=== PATIENT | male | born 1950 | race Two or more races ===

== ENCOUNTER → 2022-10-27 | Outpatient (CLI) | payer OTHER, MEDICAID ==
[~2022-10-27] MED LIST: PLAVIX
[2022-10-27 14:53] LABS: Urine Bacteria FEW /hpf (None Seen); Urine Blood 3+ /uL (Negative); Urine Mucus FEW (None Seen); Urine Specific Gravity 1.017 (1.001-1.035); Urine WBC 116 /hpf (0 - 3)
== END | disposition home or self-care (01) ==
LOC: LAB 12:17
PROVIDERS: ATTEND Urology
DX: R97.20 Elevated prostate specific antigen [PSA] (principal); N39.0 Urinary tract infection, site not specified
CPT/HCPCS: 81001; 84153; 84154; 87086

== ENCOUNTER → 2022-11-21 | Outpatient (CLI) | payer OTHER, MEDICAID ==
[2022-11-21 16:00] LABS: Urine Bacteria MOD /hpf (None Seen); Urine Blood 3+ /uL (Negative); Urine Hyaline Cast FEW /lpf (0 - 2); Urine Mucus FEW (None Seen); Urine Specific Gravity 1.019 (1.001-1.035); Urine WBC 294 /hpf (0 - 3)
== END | disposition home or self-care (01) ==
LOC: LAB 15:14
PROVIDERS: ATTEND Urology
DX: N39.0 Urinary tract infection, site not specified (principal)
CPT/HCPCS: 81001; 87086

== ENCOUNTER → 2022-12-12 | Outpatient (CLI) | payer OTHER, MEDICAID ==
[2022-12-12 15:18] LABS: Urine Bacteria FEW /hpf (None Seen); Urine Blood 3+ /uL (Negative); Urine Specific Gravity 1.016 (1.001-1.035); Urine WBC 54 /hpf (0 - 3)
== END | disposition home or self-care (01) ==
LOC: LAB 14:49
PROVIDERS: ATTEND Urology
DX: N39.0 Urinary tract infection, site not specified (principal)
CPT/HCPCS: 81001; 87086

== ENCOUNTER → 2023-01-03 | Outpatient (CLI) | payer MEDICAID ==
[2023-01-03 09:33] LABS: Urine Bacteria FEW /hpf (None Seen); Urine Blood 2+ /uL (Negative); Urine Mucus FEW (None Seen); Urine Specific Gravity 1.019 (1.001-1.035); Urine WBC 6 /hpf (0 - 3)
== END | disposition home or self-care (01) ==
LOC: LAB 09:04
PROVIDERS: ATTEND Urology
DX: R39.9 Unspecified symptoms and signs involving the genitourinary system (principal)
CPT/HCPCS: 81001; 87086

== ENCOUNTER → 2023-01-23 | Outpatient (CLI) | payer OTHER, MEDICAID ==
[2023-01-23 09:47] LABS: Urine Bacteria NONE SEEN /hpf (None Seen); Urine Blood 1+ /uL (Negative); Urine Mucus FEW (None Seen); Urine Specific Gravity 1.016 (1.001-1.035); Urine WBC 6 /hpf (0 - 3)
== END | disposition home or self-care (01) ==
LOC: LAB 09:09
PROVIDERS: ATTEND Urology
DX: N30.00 Acute cystitis without hematuria (principal)
CPT/HCPCS: 81001; 87086

== ENCOUNTER → 2023-02-03 | Outpatient (CLI) | payer OTHER, MEDICAID ==
[2023-02-03 16:27] LABS: Urine Bacteria FEW /hpf (None Seen); Urine Blood 3+ /uL (Negative); Urine Mucus FEW (None Seen); Urine Specific Gravity 1.017 (1.001-1.035); Urine WBC 92 /hpf (0 - 3)
== END | disposition home or self-care (01) ==
LOC: LAB 16:02
PROVIDERS: ATTEND Urology
DX: N39.0 Urinary tract infection, site not specified (principal)
CPT/HCPCS: 81001; 87086

== ENCOUNTER → 2023-05-25 | Day surgery (SDC) | payer OTHER, MEDICAID ==
[2023-05-23 12:52] LABS: Basophils # (auto) 0.1 10 ^3/uL (0-0.2); Basophils % (auto) 1.2 % (0.0-2.0); Eosinophils # (auto) 0.2 10 ^3/uL (0-0.8); Eosinophils % (auto) 3.6 % (0.0-7.0); Hematocrit 42.2 % (41.0-53.0); Hemoglobin 14.5 g/dL (13.5-17.5); Lymphocytes # (auto) 1.9 10 ^3/uL (0.4-5.4); Lymphocytes % (auto) 33.3 % (10.0-50.0); Mean Corpuscular Hemoglobin 33.2 pg (28.0-32.0); Mean Corpuscular Hgb Conc. 34.4 g/dL (32.0-36.0); Mean Corpuscular Volume 96.7 fL (80.0-100.0); Monocytes # (auto) 0.4 10 ^3/uL (0-1.3); Monocytes % (auto) 7.8 % (0.0-12.0); Neutrophils % (auto) 54.1 % (37.0-80.0); Nucleated Red Blood Cells % 0.2 %; Red Blood Cells 4.37 10^6/uL (4.5-5.90); Red Cell Distribution Width 14.1 % (11.8-14.3); White Blood Cell 5.6 10^3/uL (4.4-10.8)
[2023-05-23 12:56] LABS: INR 1.04 (0.9-1.15); Prothrombin Time 10.9 sec (9.3-11.8)
[2023-05-23 13:11] LABS: Alanine Aminotransferase 23 U/L (7-40); Albumin 4.2 g/dL (3.2-4.8); Alkaline Phosphatase 68 U/L (46-116); Anion Gap 5 (5-15); Aspartate Aminotransferase 26 U/L (13-40); Blood Urea Nitrogen 11 mg/dL (9-23); Calcium 9.5 mg/dL (8.5-10.1); Carbon Dioxide 28 mmol/L (20-30); Chloride 109 mmol/L (98-107); Glucose 96 mg/dL (74-106); Potassium 4.4 mmol/L (3.5-5.1); Sodium 142 mmol/L (136-145)
[2023-05-23 13:12] LABS: Bilirubin, Total 0.8 mg/dL (0.2-1.0); Total Protein 7.7 g/dL (5.7-8.2)
[2023-05-23 13:45] LABS: Urine Bacteria NONE SEEN /hpf (None Seen); Urine Blood 3+ /uL (Negative); Urine Clarity HAZY (Clear); Urine Color Yellow (Yellow); Urine Protein, UAD TRACE (Negative); Urine Specific Gravity 1.016 (1.001-1.035); Urine Urobilinogen Normal (Negative); Urine WBC 33 /hpf (0 - 3)
[~2023-05-25] VITALS: Ht 177.8 cm; Wt 127.0 kg
[~2023-05-25] MED LIST changes: +ATEN-60 PO; +CIPROFLOXACIN 400MG/200ML 200 ML IV ONE; +CLOP75TA28 PO; +FURO20TA3 PO; +HYDROmorphone HCL 2 MG/ML VL/or syr IV ONE; +HYDROmorphone HCL 2 MG/ML VL/or syr IV PRN; +MEPERIDINE HCL (25 MG/ML) 1ML VIAL IV PRN; +MEPERIDINE HCL (25 MG/ML) 1ML VIAL ONE; +ONDANSETRON HCL 4 MG/2 ML VIAL IV PRN; -PLAVIX; +PROPOFOL 10 MG/ML 20 ML IV ONE; +ePHEDrine SULFATE 50 MG/ML AMP ONE; +fentaNYL CITRATE 100 MCG/2 ML VL ONE
[2023-05-25 12:59] VITALS: PULSE 66; RESP 16; TEMP 97.3; O2SAT 98
[2023-05-25 14:30] VITALS: BP 105/53; PULSE 56; RESP 58; O2SAT 95
== END | disposition home or self-care (01) ==
LOC: SUR 08:26
PROVIDERS: ATTEND Urology
DX: N20.0 Calculus of kidney (principal); C67.4 Malignant neoplasm of posterior wall of bladder; I10 Essential (primary) hypertension; I25.10 Atherosclerotic heart disease of native coronary artery without angina pectoris; I25.2 Old myocardial infarction; G47.30 Sleep apnea, unspecified; E66.9 Obesity, unspecified; Z68.30 Body mass index [BMI] 30.0-30.9, adult
CPT/HCPCS: 36415; 50590; 52240; 80053; 81001; 85025; 85610; 85730; 87086; C1769; J0744; J1170; J2175; J2704; J3010; J7030

== ENCOUNTER 2023-07-06 07:09 | Day surgery (SDC) | payer OTHER, MEDICAID ==
[2023-07-03 12:16] LABS: Basophils # (auto) 0.1 10 ^3/uL (0-0.2); Basophils % (auto) 1.1 % (0.0-2.0); Eosinophils # (auto) 0.1 10 ^3/uL (0-0.8); Eosinophils % (auto) 2.2 % (0.0-7.0); Hemoglobin 14.3 g/dL (13.5-17.5); Lymphocytes # (auto) 1.7 10 ^3/uL (0.4-5.4); Lymphocytes % (auto) 28.2 % (10.0-50.0); Mean Corpuscular Hemoglobin 31.9 pg (28.0-32.0); Mean Corpuscular Hgb Conc. 33.3 g/dL (32.0-36.0); Mean Corpuscular Volume 95.9 fL (80.0-100.0); Monocytes # (auto) 0.4 10 ^3/uL (0-1.3); Monocytes % (auto) 7.5 % (0.0-12.0); Neutrophils # (auto) 3.6 10 ^3/uL (1.6-8.6); Nucleated Red Blood Cells % 0.1 %; Red Blood Cells 4.48 10^6/uL (4.5-5.90); White Blood Cell 5.9 10^3/uL (4.4-10.8)
[2023-07-03 12:41] LABS: Urine Bacteria FEW /hpf (None Seen); Urine Blood 1+ /uL (Negative); Urine Clarity Clear (Clear); Urine Color Yellow (Yellow); Urine Protein, UAD TRACE (Negative); Urine Specific Gravity 1.014 (1.001-1.035); Urine WBC 37 /hpf (0 - 3)
[2023-07-03 12:46] LABS: Alanine Aminotransferase 25 U/L (7-40); Alkaline Phosphatase 74 U/L (46-116); Anion Gap 5 (5-15); Aspartate Aminotransferase 24 U/L (13-40); BUN/Creatinine Ratio 13.8 (10.0-20.0); Blood Urea Nitrogen 12 mg/dL (9-23); Calcium 9.9 mg/dL (8.5-10.1); Carbon Dioxide 28 mmol/L (20-30); Chloride 109 mmol/L (98-107); Glucose 114 mg/dL (74-106); Partial Thromboplastin Time 28.7 SEC (24.5-34.5); Potassium 4.4 mmol/L (3.5-5.1); Prothrombin Time 10.5 sec (9.3-11.8); Sodium 142 mmol/L (136-145)
[2023-07-03 12:47] LABS: Albumin 4.2 g/dL (3.2-4.8); Bilirubin, Total 0.9 mg/dL (0.2-1.0); Total Protein 7.7 g/dL (5.7-8.2)
[~2023-07-06] VITALS: Ht 177.8 cm; Wt 127.9 kg
[~2023-07-06 07:09] MED LIST changes: +ALBUAER3 IN; -CIPROFLOXACIN 400MG/200ML 200 ML IV ONE; +CITA-73 PO; +DOCU-94 PO; -HYDROmorphone HCL 2 MG/ML VL/or syr IV ONE; -HYDROmorphone HCL 2 MG/ML VL/or syr IV PRN; +ISOS1TAB28 PO; -MEPERIDINE HCL (25 MG/ML) 1ML VIAL IV PRN; -MEPERIDINE HCL (25 MG/ML) 1ML VIAL ONE; +METO-289 PO; +MULT-908 OR; +OMEGCAP OR; -ONDANSETRON HCL 4 MG/2 ML VIAL IV PRN; +OXYB5TAB10 PO; +PERCOT PO; -PROPOFOL 10 MG/ML 20 ML IV ONE; +SIMV40TA18 PO; +TOLT1CAP29 PO; +UMEC1INH IN; +ZONI100C43 PO; -ePHEDrine SULFATE 50 MG/ML AMP ONE; -fentaNYL CITRATE 100 MCG/2 ML VL ONE
[2023-07-06] MEDS ORDERED: mitoMYcin 40 MG in STERILE WATER 60 ML IS ONE (07:15)
[2023-07-06] MEDS ORDERED: GLYCOPYRROLATE 0.2 MG/ML 1ML VIAL ONE (09:08)
[2023-07-06] MEDS ORDERED: SODIUM CHLORIDE LOCK 20 ML ONE (09:08)
[2023-07-06] MEDS ORDERED: ROCURONIUM 10MG/ML 10ML VIAL IV ONE (09:08)
[2023-07-06] MEDS ORDERED: DexAMETHasone SOD PHOS 10MG/1ML VIAL INJ ONE (09:08)
[2023-07-06] MEDS ORDERED: NEOSTIGMINE 1 MG/ML INJ (10mg/10ML VIAL) ONE (09:08)
[2023-07-06] MEDS ORDERED: MIDAZOLAM HCL 2MG/2ML 2ml VIAL (1mg/ml) ONE (09:08)
[2023-07-06] MEDS ORDERED: fentaNYL CITRATE 100 MCG/2 ML VL ONE (09:08)
[2023-07-06] MEDS ORDERED: MEPERIDINE HCL (25 MG/ML) 1ML VIAL ONE (09:08)
[2023-07-06] MEDS ORDERED: ETOMIDATE (2MG/ML) 20ML VIAL IV ONE (09:08)
[2023-07-06] MEDS ORDERED: HYDROmorphone HCL 2 MG/ML VL/or syr IV PRN ×2 (09:15)
[2023-07-06] MEDS ORDERED: METOCLOPRAMIDE HCL 5MG/ml INJ 2ml VIAL IV PRN (09:15)
[2023-07-06] MEDS ORDERED: MORPHINE SULFATE INJ 2 MG/ml SYRG IV PRN (09:15)
[2023-07-06 10:18] VITALS: PULSE 87; RESP 19; TEMP 98.2; O2SAT 96
[2023-07-06 11:20] VITALS: BP 123/61; PULSE 75; RESP 12; O2SAT 96
== END 2023-07-06 11:35 | disposition home or self-care (01) ==
LOC: SUR 07:09
PROVIDERS: ATTEND Urology
DX: N40.1 Benign prostatic hyperplasia with lower urinary tract symptoms (principal); D09.0 Carcinoma in situ of bladder; N30.00 Acute cystitis without hematuria; N30.20 Other chronic cystitis without hematuria; I10 Essential (primary) hypertension; I25.2 Old myocardial infarction; I25.119 Atherosclerotic heart disease of native coronary artery with unspecified angina pectoris; J44.9 Chronic obstructive pulmonary disease, unspecified; G47.33 Obstructive sleep apnea (adult) (pediatric); F17.210 Nicotine dependence, cigarettes, uncomplicated; E66.01 Morbid (severe) obesity due to excess calories; Z68.41 Body mass index [BMI] 40.0-44.9, adult; Z88.6 Allergy status to analgesic agent; Z88.8 Allergy status to other drugs, medicaments and biological substances; Z79.51 Long term (current) use of inhaled steroids; Z79.899 Other long term (current) drug therapy; Z98.890 Other specified postprocedural states
CPT/HCPCS: 36415; 51720; 52234; 80053; 81001; 85025; 85610; 85730; 87086; J1100; J2175; J2250; J3010; J9280

== ENCOUNTER → 2023-07-18 | Outpatient (CLI) | payer OTHER, MEDICAID ==
[2023-07-18 14:59] LABS: Urine Amorphous Crystal FEW /hpf (None Seen); Urine Bacteria FEW /hpf (None Seen); Urine Blood 3+ /uL (Negative); Urine Clarity HAZY (Clear); Urine Color Yellow (Yellow); Urine Protein, UAD 1+ (Negative); Urine Specific Gravity 1.018 (1.001-1.035); Urine WBC 47 /hpf (0 - 3); Urine pH 7.5 (5.0-8.0)
== END | disposition home or self-care (01) ==
LOC: LAB 14:02
PROVIDERS: ATTEND Urology
DX: R30.0 Dysuria (principal)
CPT/HCPCS: 81001; 87086; 87088; 87186